=== PATIENT | female | born 1975 | race Caucasian/White ===

== ENCOUNTER → 2017-01-18 | Day surgery (SDC) | payer OTHER ==
[~2017-01-18] MED LIST: BUPIVACAINE HCL PF 0.75% 30 ML VIAL ONE; CLINDAMYCIN PHOS 600 MG/4 ML VIAL ONE; IBUP100S30 PO; LACTATED RINGER'S 1000 ML INJ 1,000 ML ONE; LIDOCAINE 1.5%/EPINEPHrine 1:200,000 PF SOLN 30 ML AMP ONE; LORA10TA7 PO; MIDAZOLAM HCL 5 MG/ML VIAL (1 ML) ONE; MOME17I; PROPOFOL 200 MG/20 ML AMP IV ONE; SODIUM CHLORIDE 0.9% SOLN 100 ML (PAB) BAG IV ONE
--- NOTE | 2017-01-19 06:34 | MP ---
cc: MACK HENLEY DPM DATE OF SURGERY: 01/18/2017 PREOPERATIVE DIAGNOSIS Left ankle peroneus brevis tendon tear/rupture. POSTOPERATIVE DIAGNOSIS Left ankle peroneus brevis tendon tear/rupture. PROCEDURE PERFORMED Repair of peroneus brevis tendon by transferring to the peroneus longus flexor tendon transfer with graft. SPECIMEN None. ESTIMATED BLOOD LOSS Less than 50 mL. COMPLICATIONS None. ANESTHESIA General with popliteal block. MATERIALS ActiShield CF amniotic barrier membrane. Ethibond suture, Monocryl suture, nylon suture. TOURNIQUET TIME 54 minutes at a setting of 250 mmHg about the patient's mid thigh. DISPOSITION PACU then discharge home once stable per same-day surgery criteria PROCEDURE IN DETAIL After receiving a popliteal block in the pre-anesthesia area the patient was then positioned lateral after general intubation. The patient's left lower extremity was then scrubbed, prepped and draped in the usual aseptic fashion. The foot was elevated, exsanguinated and the previously placed mid thigh tourniquet was inflated at 250 mmHg. An incision was made high at the level of the fibula coursing down to the base of the fifth metatarsal. Sharp and blunt dissection was carefully made through adipose and deep fat. Venous structures that were encountered were Bovied and ligated as deemed necessary. The sural nerve was identified distally and maintained its integrity and minimal destruction to the nerve took place while performing the surgery. The peroneal tendon sheath was incised. There was noted be chronic inflammatory fluid. Upon running the peroneal tendon there appeared to be a longitudinal split with a very large deficit centrally at the sub-fibular area, however, the peroneus longus was noted to be intact. By skirting the 15 blade the anastomosis site was repaired proximally in which the viable most proximal portion of the peroneus brevis was then pulled as far distal as possible and anastomosed utilizing Ethibond suture to the peroneus longus. The same thing was performed distally in which the distal aspect of the peroneus brevis tendon was anastomosed to the most distal aspect of the peroneus longus tendon. The mid substance of the peroneus brevis was then excised and passed off the surgical field. Amniotic membrane was wrapped around the anastomosis site. The peroneal sheath and retinaculum was then repaired utilizing Vicryl. Deep closure took place utilizing Monocryl. Skin was closed utilizing nylon. Upon relieving the tourniquet there was a prompt hyperemic response to all digits without any delayed capillary fill time. The patient was then positioned in a neutral position in a Domingo compressive dressing and posterior splint. She was extubated. She was transferred from the OR to PACU with all vital signs stable. She is non-weightbearing. She will ice and elevate. She will start DVT precautions within 12 hours. SHAWNA Sutton/CASEY /3:23 PM /6:23 AM
== END | disposition home or self-care (01) ==
LOC: ESDC 12:25
PROVIDERS: ATTEND Podiatrist Foot & Ankle Surgery
DX: S86.312A Strain of muscle(s) and tendon(s) of peroneal muscle group at lower leg level, left leg, initial encounter (principal)
CPT/HCPCS: 01470; 27691; 64450; J2250; J3010; J7120